=== PATIENT | female | born 1990 | race Caucasian/White ===

== ENCOUNTER 2018-11-15 06:47 | Observation (INO) | payer BC ==
--- NOTE | 2018-11-15 06:02 | PDGENHP ---
History and Physical History and Physical: Assessment and Plan: 1. Endometriosis of pelvic peritoneum Leisa has known endometriosis in the both cul-de-sacs, the pelvic sidewalls, and a right endometrioma. She has failed medical management. As a result she is scheduled for robotic excision of endometriosis and the endometrioma. The risks benefits and alternatives were presented and informed consent was obtained. I would like her to remain on her NuvaRing until she wishes to attempt . 2. Endometriosis of ovary 3. Dysmenorrhea Subjective: Patient ID: Leisa Hanna is a 28 y.o. female who presents to [facility] for endometriosis. HPI Leisa presents for preoperative visit. She has a known history of endometriosis and underwent essentially a diagnostic laparoscopy in October 2016. She was found to have endometriosis in the posterior cul-de-sac, both uterosacral ligaments, as well as the right adnexa with a right ovarian endometrioma. She continues to have pelvic pain which has failed medical management. She has both dysmenorrhea as well as daily pelvic pain which is worse during ovulation and before her menses. She currently is using a NuvaRing. She also has dyschezia. The daily pain waxes and wanes but is worse with stress and activity. She continues to have dyschezia. She is unable to tolerate intercourse unless she uses marijuana. As a result, she is scheduled for laparoscopy with excision of endometriosis and the endometrioma. The risks , benefits, and alternatives were presented and informed consent was obtained. Below is a copy of Kandi's note. Leisa is a 28 year old para 0, who has been previously diagnosed with endometriosis. She had worsening pain 2-3 years ago and underwent an exploratory lap in 10/2016 by her primary [employer] E[employer]OR, Dr. Boyer in [place]. She had adhesions of the colon to the left side wall, endo in the posterior and anterior cul de sac and bilateral uterosacral ligaments, adhesions of the right ovar to the sidewall and an endometrioma. She fulguration of some lesions, but the endometrioma was uable to be removed due to adhesions and location along the salpinx. She felt better 6 mos after surgery, but has had worsening pain again. Her menses started at age 12 and she frequently missed school due to pain. She went on HEATHER at age 18 which questionably helped. Her menses are regular, heavy, she bleeds 3-5 days and can only wear pads now. She has bad cramping R>L. She also has daily pain now which feels like a hot doctor of medicine her R side. She notes that the pain extends down her legs, in her ribs and hips. She has been on a nuva ring for 2 years which alleviates the menstrual pain as she does not have periods if she takes it in a continuous fashion. She has dyspareunia which is deep and lasts for a while, as well as dyschezia which is worse with ovulation and menses, and certain foods. She has pain with a full bladder and frquency. She does desire future childbearing. At the end of our discussion, she would liek to pursue robotic excision surgery with Dr. Navarro. She would like to preserve the right ovary for fertility if possible. She notes that her mom and possibly her grandma had endometriosis. She does not drink alcohol. She does not use tobacco. 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 PastMedicalHistory No past medical history on file. PastSurgicalHistory No past surgical history on file. CURRENT MEDICATIONS: No current outpatient medications on file. No current facility-administered medications for this visit. ALLERGIES: Patient has no allergy information on record. I have reviewed, verified and agree with the past medical, surgical, , family, social and ROS history as documented by the RN today. Objective: Vital Signs: There were no vitals taken for this visit. Physical Exam Gen: This is an alert, well developed woman in no distress. Neuro: She moves all extremities. Psych: She is appropriate, oriented, with normal affect. Neck: No thyroid enlargement, adenopathy, or tenderness. Lungs: Clear to ascultation, no wheezes or rales. Heart: Regular rate and rhythm without obvious murmurs. Abdomen: Soft, non-tender, without guarding, rebound, or masses. Extremities: No edema or cyanosis. Pelvic: Normal external genitalia. Non-gaping introitus, vagina without discharge, adequately estrogenized, no significant prolapse. Cervix without lesions or discharge. Uterus normal sized. Adnexa non-tender without enlargement. The uterus has minimal mobility. She is tender surrounding the cervix and throughout the posterior cul-de-sac. The uterus has almost no mobility. She is tender surrounding the cervix and posterior uterus. The right adnexa appears to be adherent to adjacent structures. DATA: I have reviewed the pertinent medical records. PELVIC ULTRASOUND Transvaginal Pelvic Ultrasound Indication: Ovarian cyst. Findings: The uterus is anterior and measures 6.4 x 3.0 x 4.6 cm. The right ovary measures 3.1 x 2.3 x 3.8 cm. It contains a 2.8 x 2.4 x 1.7 cm endometrioma. The right ovary appears to be adherent to adjacent structures. The left ovary is hidden by the sigmoid colon and measures 2.3 x 1.5 cm. There is no adhesion of the rectum to the cervix. Impression: 2.8 cm right ovarian endometrioma. The right adnexa appears to be adherent to adjacent structures. TIME/COMMUNICATION: I personally spent a total of 60 minutes. Of that 40 minutes was counseling/ coordination of patient's care. See my note above for details. Grzegorz Navarro MD Board Certified Female Pelvic Medicine and Reconstructive Surgery Director of Minimally Invasive Gynecologic Surgery, [facility] Surgeon in Minimally Invasive Gynecologic Surgery [facility] Surgeon in Robotic Surgery
[2018-11-15] MEDS ORDERED: GABAPENTIN 300 MG CAP PO ONE (07:16)
[2018-11-15] MEDS ORDERED: ACETAMINOPHEN 500 MG TAB PO ONE (07:16)
[2018-11-15] MEDS ORDERED: PHENAZOPYRIDINE HCL 200 MG TAB PO ONE (07:16)
[2018-11-15] MEDS ORDERED: ceFAZolin 2 GM/DEXTROSE 100 ML IV ONE (07:16)
[2018-11-15] MEDS ORDERED: LR 1,000 ML IV ONE (07:17)
[2018-11-15] MEDS ORDERED: BUPIVACAINE/EPI 0.5% 30 ML SDV ONE (07:58)
[2018-11-15] MEDS ORDERED: MIDAZOLAM 2 MG/2 ML VIAL IVP ONE (08:01)
--- NOTE | 2018-11-15 08:01 | PDANEPAE ---
ANE History of Present Illness Endometriosis with pelvic pain ANE Past Medical History - Cardiovascular History Hx Hypertension: No Hx Arrhythmias: No Hx Chest Pain: No Hx Coronary Artery / Peripheral Vascular Disease: No Hx CHF / Valvular Disease: No Hx Palpitations: No - Pulmonary History Hx COPD: No Hx Asthma/Reactive Airway Disease: No Hx Recent Upper Respiratory Infection: No Hx Oxygen in Use at Home: No Hx Sleep Apnea: No Sleep Apnea Screening Result - Last Documented: Negative - Neurologic History Hx Cerebrovascular Accident: No Hx Seizures: No Hx Dementia: No - Endocrine History Hx Diabetes: No - Renal History Hx Renal Disorders: No - Liver History Hx Hepatic Disorders: No - Neurological & Psychiatric Hx Hx Neurological and Psychiatric Disorders: Yes Neurological / Psychiatric History Comment: migraines maxalt as needed. anxiety and depression - Cancer History Hx Cancer: No - Congenital Disorder History Hx Congenital Disorders: No - GI History Hx Gastrointestinal Disorders: Yes Gastrointestinal History Comment: acid reflux, leaky gut - Other Health History Other Health History: strep throat 11/04 on augmentin - Chronic Pain History Chronic Pain: No - Surgical History Prior Surgeries: exploratory lap dx for endometriosis. 2011 R lumpectomy. 1996 Tonsilectomy. 2011 wisdom teeth ANE Review of Systems Review of Systems: - Exercise capacity METS (RN): 5 METS ANE Patient History - Allergies Allergies/Adverse Reactions: azithromycin Allergy (Verified 11/08/18 14:42) Other-Enter Comments latex Allergy (Verified 11/08/18 14:42) Hives Sulfa (Sulfonamide Antibiotics) Allergy (Verified 11/15/18 07:40) Other-Enter Comments - Home Medications Home medications: home medication list seen and reviewed Home Medications: Augmentin 250/125 MG TAB (*) 11/08/18 [Last Taken 11/14/18] Novaring 11/08/18 [Last Taken 11/15/18] Probiotic 11/15/18 [Last Taken 11/14/18] - NPO status NPO Status: no food or drink >8 hours NPO Since - Liquids (Date): 11/15/18 NPO Since - Liquids (Time): 05:30 NPO Since - Solids (Date): 11/14/18 NPO Since - Solids (Time): 19:00 - Anes Hx Anes Hx: no prior problems (sore throat), post operative nausea and vomiting ( Hx postop N/V, controlled with scopolamine patch) - Smoking Hx Smoking Status: Never smoked - Family Anes Hx Family Hx Anesthesia Complications: none ANE Labs/Vital Signs - Vital Signs Blood Pressure: 131/83 Heart Rate: 101 Respiratory Rate: 18 O2 Sat (%): 96 Height: 162.56 cm Weight: 72.575 kg ANE Physical Exam - Airway Neck exam: FROM Mallampati Score: Class 1 Mouth exam: normal dental/mouth exam - Pulmonary Pulmonary: no respiratory distress - Cardiovascular Cardiovascular: regular rate and rhythym - ASA Status ASA Status: II ANE Anesthesia Plan Anesthesia Plan: general endotracheal anesthesia (plan for TIVA with muscle relaxants and BIS monitor ) Total IV Anesthesia: Yes
--- NOTE | 2018-11-15 08:06 | PDHPUP ---
History & Physical Update H&P update statement: This history and physical update is based on an assessment of the patient which was completed after admission or registration (within 24 hours), but prior to the surgery/procedure. H&P update: H&P reviewed & patient examined, no change in patient's condition since H&P completed
[2018-11-15] MEDS ORDERED: fentaNYL 250 MCG/5 ML INJ ONE (08:11)
[2018-11-15] MEDS ORDERED: PROPOFOL 200 MG/20 ML VIAL ONE (08:11)
[2018-11-15] MEDS ORDERED: PROPOFOL/EMULSION 500 MG/50 ML BOTTLE IV ONE ×2 (08:12→08:56)
[2018-11-15] MEDS ORDERED: SCOPOLAMINE HYDROBROMIDE 1 MG/3 DAYS PATCH TD SCH (08:15)
[2018-11-15] MEDS ORDERED: LIDOCAINE 2% 5 ML SDV ONE (08:55)
[2018-11-15] MEDS ORDERED: DEXAMETHASONE 4 MG/ML VIAL ONE ×2 (08:55)
[2018-11-15] MEDS ORDERED: ROCURONIUM 50 MG/5 ML VIAL ONE (08:55)
[2018-11-15] MEDS ORDERED: NALOXONE HCL 0.4 MG/ML INJ IVP PRN (09:15)
[2018-11-15] MEDS ORDERED: ONDANSETRON 4 MG/2 ML VIAL IVP PRN ×2 (09:15→12:15)
[2018-11-15] MEDS ORDERED: MEPERIDINE 25 MG/0.5 ML AMP IVP PRN (09:15)
[2018-11-15] MEDS ORDERED: ONDANSETRON 4 MG/2 ML VIAL ONE ×2 (09:42→10:20)
--- NOTE | 2018-11-15 10:11 | POSTOPPROG ---
Post Op Note Date of Operation: 11/15/18 Surgeon: Grzegorz Navarro Product Safety Consultant: Angelica Alvarado Anesthesia: GET(General Endotracheal) Pre-op Diagnosis: Endometriosis Post-op Diagnosis: Same Procedure: Robotic excision of endo, bilat ureterolysis, rt endometrioma Findings: Endo Inf/Abcess present in the surg proc area at time of surgery?: No EBL: Minimal Complications: None Specimen(s): Peritoneum with endo Rt ovarian cyst wall
[2018-11-15] MEDS ORDERED: fentaNYL 100 MCG/2 ML INJ ONE (10:21)
--- NOTE | 2018-11-15 10:22 | POSTANESTH ---
Post Anesthetic Evaluation Cardiovascular Status: Normal, Stable Respiratory Status: Normal, Stable Level of Consciousness/Mental Status: Can Participate in Eval Pain Control: Adequate, Prn Tx Ordered Nausea/Vomiting Control: Adequate, Prn Tx Ordered Complications Possibly Related to Anesthesia: None Noted
[2018-11-15] MEDS: fentaNYL 100 MCG/2 ML INJ IVP PRN ×2 (10:24→10:31)
[2018-11-15] MEDS ORDERED: HYDROmorphONE/DILAUDID 2 MG/ML INJ ONE (10:33)
[2018-11-15] MEDS: HYDROmorphONE/DILAUDID 2 MG/ML INJ IVP PRN ×5 (10:34→12:18)
[2018-11-15] MEDS ORDERED: PROMETHAZINE HCL 25 MG/ML INJ ONE (10:49)
[2018-11-15] MEDS: PROMETHAZINE HCL 25 MG/ML INJ IVP PRN ×2 (10:50→12:18)
--- NOTE | 2018-11-15 10:57 | GOP ---
DATE OF OPERATION: 11/15/2018 SURGEON: Grzegorz Navarro MD PSYCH THERAPIST: Angelica Alvarado CFA. ANESTHESIA: General. PREOPERATIVE DIAGNOSIS: 1. Endometriosis. 2. Cyclic pelvic pain. 3. Right ovarian mass. POSTOPERATIVE DIAGNOSIS: 1. Endometriosis. 2. Cyclic pelvic pain. 3. Right ovarian mass. PROCEDURE PERFORMED: 1. Robotic excision of endometriosis in anterior and posterior cul-de-sacs and bilateral pelvic side hancock. 2. Bilateral ureterolysis. 3. Excision of right ovarian mass. 4. Bilateral ovariopexy. 5. Excision of rectal lesion. FINDINGS: SPECIMENS: 1. Pelvic peritoneum with endometriosis. 2. Right ovarian cyst wall. 1. Rectal lesion. 3. ESTIMATED BLOOD LOSS: Scant. DESCRIPTION OF PROCEDURE: The patient was taken to the operating room where she was identified. Gen eral anesthesia was administered and found to be adequate. She was placed in the lithotomy position and prepared and draped in normal sterile fashion. A Rivas catheter was placed in her bladder. A [place] tenaculum was placed in the uterus for manipulation. A 1 cm infraumbilical incision was made with a scalpel. The Veress needle with the CO2 gas flowing w as advanced into the peritoneal cavity. The abdomen was then insufflated with carbon dioxide gas. T he 12 mm trocar, followed by the laparoscope were then inserted. The upper abdomen was unremarkable. There was no endometriosis on either diaphragm, liver, gallbladder, stomach, or upper abdominal bow el. Two lateral ports were placed in the right and 1 on the left under direct visualization. She th en was placed in Trendelenburg position and the DaVinci robot docked on the left side. The instrumen ts were then brought into the abdominal cavity under direct visualization. She was found to have endometriosis on the right abdominal wall just at the pelvic brim. The appendi x had no evidence of endometriosis. She had endometriosis throughout the pelvis, specifically in the anterior and posterior cul-de-sac, both pelvic sidewalls, overlying both ureters. The right ovary w as adherent to the right pelvic sidewall overlying the ureter. It contained a chocolate cyst. There was some serosal endometriosis on the posterior aspect of the uterus. The left ovary had several sm all superficial lesions. The right ovary was dissected off the pelvic sidewall and ureter. The cyst was opened and the entire cyst wall was dissected free of the ovary. Both ovaries were then treated. Two large areas of the anterior cul-de-sac were completely excised to remove all endometriosis in this area. A bilateral ov ariopexy was then performed by attaching each ovary to the ipsilateral round ligaments with 3-0 Vicry l Rapide suture. The lesion on the distal rectum was then excised. This extended approximately 30% into the muscularis. The entire posterior cul-de-sac peritoneum from the distal rectum up to and inc luding the cervix and laterally to the uterosacral ligaments was then completely excised. The patien t required a bilateral ureterolysis given the extensive endometriosis overlying both ureters. The pe ritoneum at the pelvic brims were incised. The ureters were gently dissected free and lateralized of f the overlying peritoneum and endometriosis from the pelvic brim down to the uterine arteries. Once this accomplished, the entire pelvic sidewall peritoneum was completely excised. The lesion at the right pelvic brim was incised. The sigmoid colon had some adhesions, which caused it to drape overly ing the left adnexa. These were taken down at the beginning of the case. The pelvis was then copiou sly irrigated with sterile saline and hemostasis was present. The lesions on the posterior serosal s urface of the uterus were then treated. The robot was then undocked. The fascial site was closed with 0 Vicryl, skin with 4-0 Monocryl and s urgical adhesive. Anesthesia was reversed and the patient was taken the PACU awake, in stable condit ion. COMPLICATIONS: None. DISPOSITION: Patient stable to PACU. /[id number]/MODL
[2018-11-15] MEDS ORDERED: DIAZEPAM 5 MG/ML 1 ML SYR IVP PRN (12:15)
[2018-11-15] MEDS ORDERED: HYDROmorphONE/DILAUDID 1 MG/ML INJ IVP PRN (12:15)
[2018-11-15] MEDS ORDERED: ONDANSETRON DISINTEGRATING 4 MG TAB PO PRN (12:15)
[2018-11-15] MEDS ORDERED: PROMETHAZINE HCL 25 MG/ML INJ IVP PRN (12:15)
[2018-11-15] MEDS ORDERED: DIAZEPAM 5 MG/ML 1 ML SYR ONE (12:16)
[2018-11-15] MEDS ORDERED: LR 1,000 ML IV SCH (12:30)
[2018-11-15] MEDS: SIMETHICONE 80 MG TAB CHEW PO SCH ×3 (14:30→20:59)
[2018-11-15] MEDS: OXYCODONE/APAP 5/325 TAB PO PRN ×2 (16:02→20:47)
[2018-11-15] MEDS: GABAPENTIN 300 MG CAP PO SCH ×2 (16:02→21:43)
[2018-11-15] MEDS: KETOROLAC 30 MG/1 ML SDV IVP SCH ×2 (18:08→23:58)
[2018-11-15] MEDS: DOCUSATE SODIUM 100 MG CAP PO SCH (21:16)
[2018-11-16] MEDS: KETOROLAC 30 MG/1 ML SDV IVP SCH (06:07)
[2018-11-16 08:04] VITALS: BP 92/61
[2018-11-16] MEDS: DOCUSATE SODIUM 100 MG CAP PO SCH (09:00)
[2018-11-16] MEDS: OXYCODONE/APAP 5/325 TAB PO PRN (09:00)
--- NOTE | 2018-11-16 11:36 | GDS ---
DISCHARGE DIAGNOSES: 1. Endometriosis. 2. Pelvic pain. PROCEDURES: 1. Robotic-assisted excision of endometriosis in the anterior posterior cul-de-sac, bilateral pelvic sidewalls. 2. Excision of right ovarian endometrioma. 3. Bilateral ureterolysis. 4. Bilateral ovariopexy. HISTORY: The patient has a long history of pelvic pain with previously diagnosed endometriosis. She was taken to the operating room on 11/15/2018, where she underwent excision surgery. She tolerated the procedure well without complications. Her postoperative course was relatively uneventful. The morning after surgery, she was ambulating, v oiding, and tolerating a general diet. She was discharged home on postoperative day #1 in good condi tion. Medications included [place] and ibuprofen for pain. She is to follow up with me in 2 weeks. /[id number]/MODL
[2018-11-16] MEDS: GABAPENTIN 300 MG CAP PO SCH (12:33)
[2018-11-16] MEDS: SIMETHICONE 80 MG TAB CHEW PO SCH (12:43)
[2018-11-18] MEDS ORDERED: PATCH REMOVAL 1 EA PATCH TD SCH (08:02)
== END 2018-11-16 11:40 | disposition home or self-care (01) ==
LOC: FSGY 06:47 → FOB 12:15
PROVIDERS: ADMIT Obstetrics & Gynecology; ATTEND Obstetrics & Gynecology
PROC: 0UB04ZX Excision of Right Ovary, Percutaneous Endoscopic Approach, Diagnostic (ICD-10-PCS; principal; 2018-11-15 08:15)
PROC: 0DBW4ZX Excision of Peritoneum, Percutaneous Endoscopic Approach, Diagnostic (ICD-10-PCS; principal; 2018-11-15 08:15)
PROC: 0UBF4ZX Excision of Cul-de-sac, Percutaneous Endoscopic Approach, Diagnostic (ICD-10-PCS; principal; 2018-11-15 08:15)
PROC: 8E0W4CZ Robotic Assisted Procedure of Trunk Region, Percutaneous Endoscopic Approach (ICD-10-PCS; principal; 2018-11-15 08:15)
PROC: 0DBP0ZX Excision of Rectum, Open Approach, Diagnostic (ICD-10-PCS; principal; 2018-11-15 08:15)
DX: N80.3 Endometriosis of pelvic peritoneum (principal); N80.1 Endometriosis of ovary; R10.2 Pelvic and perineal pain; G43.909 Migraine, unspecified, not intractable, without status migrainosus
CPT/HCPCS: 58662; G0378; J0690; J1100; J1170; J1885; J2250; J2405; J2550; J2704; J3010; J3360